=== PATIENT | female | born 1935 | race Caucasian/White ===

== ENCOUNTER → 2017-02-07 | Outpatient (CLI) | payer MEDICARE ==
[2017-02-07 12:35] LABS: MEAN CORPUSCULAR HEMOGLOBIN 31.9 pg (27.0-33.0); MEAN CORPUSCULAR VOLUME 99.8 fl (80.0-96.0); RED CELL DISTRIBUTION WIDTH 12.3 % (11.5-14.5); WHITE BLOOD COUNT 3.9 K/mm3 (4.0-10.0)
[2017-02-07 13:00] LABS: ALBUMIN 3.3 GM/DL (3.2-5.2); ALBUMIN/GLOBULIN RATIO 0.97 (1.00-1.93); BILIRUBIN,TOTAL 0.3 MG/DL (0.2-1.0); CALCIUM LEVEL 8.8 MG/DL (8.8-10.2); CREATININE FOR GFR 1.04 MG/DL (0.55-1.02); GLOMERULAR FILTRATION RATE 54.3 (>32); POTASSIUM SERUM 3.8 MEQ/L (3.5-5.1); TOTAL PROTEIN 6.7 GM/DL (6.4-8.2)
== END ==
LOC: M WUC 09:17
PROVIDERS: ATTEND Nurse Practitioner Adult Health
DX: Z00.00 Encounter for general adult medical examination without abnormal findings (principal); E78.00 Pure hypercholesterolemia, unspecified; K21.9 Gastro-esophageal reflux disease without esophagitis; M85.80 Other specified disorders of bone density and structure, unspecified site

== ENCOUNTER 2017-03-28 14:12 | Observation (INO) | payer MEDICARE ==
[2017-03-28] MEDS ORDERED: COLA100C3 PO (14:25)
[2017-03-28] MEDS ORDERED: VITASPR PO (14:25)
[2017-03-28] MEDS ORDERED: HYDR12.55 PO (14:25)
[2017-03-28] MEDS ORDERED: NEXI40CA PO (14:25)
[2017-03-28] MEDS ORDERED: ATEN50TA2 PO (14:25)
[2017-03-28] MEDS ORDERED: SIMV20TA2 PO (14:25)
[2017-03-28] MEDS ORDERED: FLUTISP (14:25)
[2017-03-28] MEDS ORDERED: HYOS125TA PO (14:27)
[2017-03-28] MEDS ORDERED: XANA0.5T PO (14:27)
[2017-03-28] MEDS ORDERED: CLON0.5T PO (14:27)
[2017-03-28 15:29] LABS: BASO % 0.3 % (0.0-1.0); EOS % 0.1 % (0.0-3.0); LARGE UNSTAINED CELL % 0.4 % (0.0-4.0); LYMPH # 0.5 K/mm3 (1.5-4.5); LYMPH % 7.4 % (24.0-44.0); MEAN CORPUSCULAR HEMOGLOBIN 32.9 pg (27.0-33.0); MEAN CORPUSCULAR VOLUME 96.6 fl (80.0-96.0); MONO # 0.2 K/mm3 (0.0-0.8); MONO % 3.2 % (0.0-5.0); NEUTROPHILS # 6.2 K/mm3 (1.8-7.7); NEUTROPHILS % 88.5 % (36.0-66.0); PLATELET COUNT, AUTOMATED 236 k/mm3 (150-450); RED CELL DISTRIBUTION WIDTH 11.9 % (11.5-14.5)
[2017-03-28] MEDS ORDERED: MORPHINE 4 MG/ML 1ML SYRINGE IV ONE ×2 (15:45→20:15)
[2017-03-28] MEDS ORDERED: ONDANSETRON 4MG/2ML VIAL (J2405) IV ONE (15:45)
[2017-03-28 15:57] LABS: ALBUMIN 3.7 GM/DL (3.2-5.2); BILIRUBIN,DIRECT 0.2 MG/DL (0.0-0.2); BILIRUBIN,TOTAL 0.5 MG/DL (0.2-1.0); CALCIUM LEVEL 9.1 MG/DL (8.8-10.2); CREATININE FOR GFR 1.44 MG/DL (0.55-1.02); GLOMERULAR FILTRATION RATE 37.3 (>32); POTASSIUM SERUM 3.1 MEQ/L (3.5-5.1); TOTAL PROTEIN 7.4 GM/DL (6.4-8.2)
[2017-03-28] MEDS: NS 1,000 ML IV SCH (16:06)
[2017-03-28] MEDS ORDERED: POTASSIUM CHLORIDE 10 MEQ SR TABLET PO ONE (17:10)
[2017-03-28] MEDS ORDERED: GASTROGRAFIN SOLUTION 30ML (Q9963) PO ONE ×2 (17:15→17:45)
[2017-03-28] MEDS ORDERED: ISOVUE-370 76% 100ML VIAL (Q9967) As Ordered ONE (18:39)
[2017-03-28] MEDS ORDERED: PROMETHAZINE INJ 25 MG/ML VIAL (J2550) IV ONE (20:15)
--- NOTE | 2017-03-28 20:40 | REPUSA ---
CLINICAL HISTORY: Upper abdominal pain, elevated lipase. TECHNIQUE: Multiple axial CT images were obtained through the abdomen and pelvis after administratio n of oral and intravenous contrast material. COMMENTS: The liver is of uniform attenuation without mass or defect. The spleen is normal. Status post cholecystectomy. There is intra and extrahepatic biliary ductal dilatation present. The common bile duct measures up to 12 mm. The pancreas is of normal contour and attenuation characteris tics. There is no evidence of adrenal mass. Both kidneys demonstrate prompt and equal nephrograms. The kidneys are normal in size, shape and con figuration. There is no evidence of renal or ureteral mass. No renal or ureteral calculi are identi fied. There is no hydroureter or hydronephrosis. There is no evidence for appendicitis. There is evidence of severe circumferential wall thickening i nvolving duodenum compatible with duodenitis. Consider followup with upper endoscopy. No evidence fo r small or large bowel obstruction. There is no evidence of abdominal ascites or lymphadenopathy. Th ere is diffuse diverticulosis involving descending and sigmoid colon without evidence of diverticulit is. There is no evidence of intrinsic or extrinsic bladder mass. There is no pelvic ascites or lymphaden opathy. Images of the lung bases show no evidence of pleural or parenchymal mass. There are no pleural effus ions. There are areas of lung scarring in the right middle lobe, lingula and lung bases. There are increased interstitial lung markings noted suggesting early pulmonary fibrosis. Very large hiatal hernia is present. Stomach is markedly distended. Status post complete hysterectomy. The bony structures are free of lytic or blastic lesions. Multilevel degenerative changes are seen i nvolving the thoracolumbar spine. Status post bilateral total hip replacement. Hardware is intact. Scattered calcifications are seen involving the aorta and major branches compatible with atherosclero sis. IMPRESSION: 1. Status post cholecystectomy. There is intra and extrahepatic biliary ductal dilatation present. 2. There is evidence of severe circumferential wall thickening involving duodenum compatible with duo denitis. Stomach is markedly distended. Consider followup with upper endoscopy. 3. There is diffuse diverticulosis involving descending and sigmoid colon without evidence of diverti culitis. 4. There are increased interstitial lung markings noted suggesting early pulmonary fibrosis. 5. Very large hiatal hernia is present. Thank you for your kind referral of this patient. We appreciate the opportunity to participate in thi s patient's care.
[2017-03-28] MEDS ORDERED: PANTOPRAZOLE 40MG INJ (PROTONIX) (C9113) IV SCH (21:00)
[2017-03-28] MEDS ORDERED: KCL 40MEQ in NS 1000ML 1,000 ML IV SCH (21:27)
[2017-03-28] MEDS ORDERED: GI COCKTAIL 50ML BTL(HYOSCYAMINE/MAALOX/LIDOCAINE VISCOUS)(1:3:1) PO PRN (21:30)
[2017-03-28] MEDS ORDERED: ONDANSETRON 4MG/2ML VIAL (J2405) IV PRN (21:30)
[2017-03-28] MEDS ORDERED: VITA100066 PO (22:03)
[2017-03-28] MEDS ORDERED: ASPI325T28 PO (22:15)
[2017-03-29] MEDS: SUCRALFATE SUSP 1GM/10ML UD PO SCH ×3 (00:41→12:00)
[2017-03-29] MEDS: NS 1,000 ML IV SCH (01:39)
[2017-03-29 01:59] VITALS: BP 175/83
--- NOTE | 2017-03-29 03:21 | HPE ---
DATE OF ADMISSION: 03/28/2017 PRIMARY CARE PROVIDER: WENDY Ramos. CHIEF COMPLAINT: Crampy abdominal pain for 1 day. PAST MEDICAL HISTORY: 1. Hypertension. 2. Hyperlipidemia. 3. Diverticulosis of the colon. 4. Allergic rhinitis. 5. Anxiety. 6. Intermittent recurrent abdominal pains. 7. Hiatal hernia. HISTORY OF PRESENT ILLNESS: This is an 82-year-old female who was in her usual state of health until last night when she developed epigastric and right upper quadrant pain. She does have intermittent episodes of this kind of pain, which would last about 3-4 hours and resolve by itself. However, this time the pain did not resolve and the pain was associated with nausea, but no vomiting and so the patient came to the emergency room for evaluation. Patient says that she has this kind of pain every couple of months since her gallbladder has been removed and describes this as phantom gallbladder pain. In the emergency room, patient had lab work done, which showed mild acute kidney injury (MILANA) with a creatinine of 1.44, elevated amylase at 133, elevated lipase of 654, so the patient underwent CT scan of the abdomen to rule out pancreatitis, which did not reveal any pancreatitis, but did show duodenitis. There was severe circumferential wall thickening involving the duodenum. The stomach was markedly distended. Also, there was decreased diverticulosis involving the descending and sigmoid colon. Very large hiatal hernia present. There were increased interstitial lung markings suggestive of early pulmonary fibrosis. Patient was in severe pain in the emergency room, which required two doses of 4 mg morphine, as well as Phenergan to control. After patient got this, patient became somnolent and was noted to hypoventilate and dropped her oxygen saturations to mid 80s, so was put on 2 liters nasal cannula with good response with oxygenation to 99%. The hospitalist service was consulted for admission and the patient was admitted for duodenitis and possible pancreatitis. PAST SURGICAL HISTORY: 1. Bilateral cataract surgery. 2. Right total hip replacement. 3. Cholecystectomy in 2009. 4. Total hysterectomy with bilateral salpingo-oophorectomy in 1992. 5. Removal of actinic keratosis on scalp and buttocks in 2012. 6. Salivary gland surgery in 2008. 7. Left total hip replacement in 2012. ALLERGIES: LISINOPRIL, ADITYA INHIBITORS cause cough and allergy. Also allergic to DICLOXACILLIN, PROBENECID and TAPE. HOME MEDICATIONS: - aspirin 325 mg by mouth daily - atenolol 50 mg by mouth daily - cholecalciferol 4000 units by mouth daily - clonazepam 0.4 mg by mouth three times a day as needed for spasms - Colace 200 mg by mouth daily - Nexium 40 mg by mouth daily - fluticasone propionate nasal spray one spray both nostrils daily - hydrochlorothiazide 12.5 mg by mouth daily - hyoscyamine sulfate 0.125 mg as needed for spasms - simvastatin 20 mg at bedtime REVIEW OF SYSTEMS: On my interview in the emergency room, patient was very somnolent after getting 8 mg of morphine and Phenergan. Could barely open her eyes. When I asked her whether she was in pain, she said no pain; however, immediately fell asleep, no further history could be elicited from the patient. Rest of the history and review of systems was taken from emergency room (ER) physician and electronic medical records. There was no fever or chills. There was no diarrhea or vomiting. No chest pain or shortness of breath. No cough or phlegm. PHYSICAL EXAMINATION: VITAL SIGNS: Temperature 98, pulse 66, respiratory rate 16, blood pressure 158/90, pulse oximetry 99% with 2 liters nasal cannula. GENERAL: Patient very sleepy after getting morphine and Phenergan. HEENT: Normocephalic, atraumatic. Anicteric eyes. CHEST: Some bilateral basal crackles, otherwise clear to auscultation. CARDIOVASCULAR: S1, S2 regular. No rub, murmur or gallop. ABDOMEN: Obese, soft, bowel sounds present. EXTREMITIES: No edema. LABORATORY DATA: WBC 7, hemoglobin 13.7, platelets 236. Sodium 140, potassium 3.1, chloride 99, bicarbonate 34, BUN 29, creatinine 1.44, glucose 143, lactase 1.9. Liver function tests are normal. Amylase 133, lipase 654. CT scan of the abdomen and pelvis as noted above. ASSESSMENT AND PLAN: This is an 82-year-old female admitted for abdominal pain thought to be related to duodenitis versus pancreatitis. PLAN: 1. Duodenitis versus pancreatitis. Will keep the patient on liquid diet. Will give gastrointestinal (GI) cocktail, pantoprazole and Carafate. CT scan did not show any pancreatitis. It showed duodenitis. There was dilatation of the stomach and thickening of the duodenal wall. Radiologist suggested followup esophagogastroduodenoscopy (EGD), so will consult GI if required either inpatient or outpatient. 2. Hypertension. Will hold hydrochlorothiazide; however, will continue atenolol. 3. Hiatal hernia and gastroesophageal reflux disease. Will continue with pantoprazole. 4. Hyperlipidemia. Will continue with simvastatin. 5. Pain control. Will give morphine as needed. 6. Deep venous thrombosis (DVT) prophylaxis has been ordered. 7. Hypokalemia. Will replace.
[2017-03-29 06:00] VITALS: BP 170/70
[2017-03-29 07:40] LABS: BASO % 0.3 % (0.0-1.0); EOS # 0.1 K/mm3 (0.0-0.50); EOS % 0.8 % (0.0-3.0); LARGE UNSTAINED CELL # 0.1 K/mm3 (0.0-0.4); LARGE UNSTAINED CELL % 0.6 % (0.0-4.0); LYMPH # 0.6 K/mm3 (1.5-4.5); LYMPH % 7.1 % (24.0-44.0); MEAN CORPUSCULAR HEMOGLOBIN 31.8 pg (27.0-33.0); MEAN CORPUSCULAR HGB CONC 32.8 g/dl (32.0-36.5); MEAN CORPUSCULAR VOLUME 96.9 fl (80.0-96.0); MONO # 0.4 K/mm3 (0.0-0.8); MONO % 4.9 % (0.0-5.0); NEUTROPHILS # 7.2 K/mm3 (1.8-7.7); NEUTROPHILS % 86.3 % (36.0-66.0); PLATELET COUNT, AUTOMATED 211 k/mm3 (150-450); RED CELL DISTRIBUTION WIDTH 12.4 % (11.5-14.5); WHITE BLOOD COUNT 8.3 K/mm3 (4.0-10.0)
[2017-03-29 08:08] LABS: ALBUMIN 3.3 GM/DL (3.2-5.2); ALBUMIN/GLOBULIN RATIO 0.94 (1.00-1.93); BILIRUBIN,TOTAL 0.5 MG/DL (0.2-1.0); CALCIUM LEVEL 8.6 MG/DL (8.8-10.2); CREATININE FOR GFR 1.38 MG/DL (0.55-1.02); GLOMERULAR FILTRATION RATE 39.2 (>32); MAGNESIUM LEVEL 2.1 MG/DL (1.8-2.4); POTASSIUM SERUM 4.3 MEQ/L (3.5-5.1); TOTAL PROTEIN 6.8 GM/DL (6.4-8.2)
[2017-03-29 08:09] VITALS: BP 170/70
[2017-03-29] MEDS ORDERED: ATENOLOL 50 MG TAB PO SCH (09:00)
--- NOTE | 2017-03-29 11:01 | REP ---
Portable chest, single AP view, patient sitting: Comparison is 01/25/2012. There is a large hiatal hernia. There is minor discoid atelectasis inferiorly in the right lung. The lung hoffman otherwise clear. Cardiac size cannot be assessed as the right cardiac margin is obscured by the hiatal hernia. The fletcher, mediastinum, and bony thorax are unremarkable. Impression: Minor discoid atelectasis in the right lung. Large hiatal hernia. Signed by William Sousa MD 03/29/2017 10:52 A
[2017-03-29] MEDS ORDERED: SUCR1TA PO (12:27)
[2017-03-29] MEDS ORDERED: ZOFR20TA PO (12:27)
[2017-03-29 14:00] VITALS: BP 163/76
--- NOTE | 2017-03-29 15:04 | DSES ---
DATE OF ADMISSION: 03/28/2017 DATE OF DISCHARGE: 03/29/2017 ATTENDING PHYSICIAN: Dr. Antonio Eastman PRIMARY CARE PROVIDER: Lela Jeffrey RN, ANP REFERRING PHYSICIAN: None. CONSULTING PHYSICIAN: None. CONDITION ON DISCHARGE: Stable. FINAL DIAGNOSIS: Gastroenteritis. PROCEDURES: None. HISTORY OF PRESENT ILLNESS: Patient is an 82-year-old female with a past medical history of hypertension, dyslipidemia, diverticulosis of the colon, allergic rhinitis, anxiety, intermittent recurrent abdominal pains, and hiatal hernia, who presented to the emergency room after she developed epigastric pain and right upper quadrant pain. Patient has noted that she has had these episodes before in the past, all of which would usually last for 3 or 4 hours and then resolve spontaneously. However, this time when the patient began to experience problems, she had associated nausea and vomiting. No actual vomiting but retching had occurred. Patient is status post cholecystectomy, and she describes the pain as phantom gallbladder pain. Patient was admitted and received a CT scan of her abdomen. CT scan of her abdomen was noted to have duodenitis, severe circumferential wall thickening involving the duodenum, stomach was markedly distended, and there was diverticulosis without diverticulitis noted at the descending sigmoid. HOSPITAL COURSE: 1. Status post abdominal pain, possibly secondary to duodenitis, possibly secondary to gastroenteritis. Patient had complained of abdominal pain in the epigastric region that has occurred before in the past with several episodes but usually had resolved. This time it was associated with nausea and retching; however, upon receiving sucralfate and Zofran throughout her hospital course, she has improved. Patient had received IV fluid hydration. Currently, upon evaluation this morning, patient denies any abdominal pain. Physical exam reveals no abdominal discomfort. Imaging has been noted. Patient has been scheduled to followup with her primary care provider and have a referral for gastroenterology for an outpatient esophagogastroduodenoscopy (EGD). 2. Hypertension. Hydrochlorothiazide has been held. Atenolol has been continued. Upon discharge, patient will continue with hydrochlorothiazide. 3. Hiatal hernia and gastroesophageal reflux disease (GERD). Will continue with Protonix. 4. Dyslipidemia. Will continue with simvastatin. 5. Pain control. Will continue with morphine as needed; however, has not required much morphine throughout his hospital course. 6. Deep venous thrombosis (DVT) prophylaxis. 7. Hypokalemia. Has been supplemented. DISCHARGE MEDICATION: Patient is being discharged home with the following medication list: - aspirin 325 mg by mouth daily - atenolol 50 mg by mouth daily - cholecalciferol 4000 units by mouth daily - clonazepam 0.5 mg by mouth three times a day as needed spasms - docusate sodium 200 mg by mouth daily - esomeprazole 40 mg by mouth daily - fluticasone one spray in each nostril daily - hydrochlorothiazide 12.5 mg by mouth daily - hyoscyamine 0.125 mg by mouth as needed spasms - simvastatin 20 mg by mouth nightly New medications prescribed include: - Zofran 4 mg by mouth every 6 hours as needed nausea for 15 tablets total - sucralfate 1 gram by mouth before food, nightly for 1-month duration DISCHARGE INSTRUCTIONS: Patient has been advised to followup with her primary care provider within the next 7 days. She has been advised to followup with gastroenterology within the next 1 month. She has been advised to remain compliant with treatment plan and medications and return to the emergency room if she experiences any problems. TIME SPENT ON DISCHARGE: 35 minutes. Edited: sandra 03/30/2017 0818
[2017-03-29] MEDS ORDERED: SIMVASTATIN 20 MG TAB PO SCH (21:00)
== END 2017-03-29 15:10 | disposition home or self-care (01) ==
LOC: M ED 15:49 → INTOOBSV 21:27 → M ED INP 21:27 → M MS5PR 03-29 01:55
PROVIDERS: ADMIT Internal Medicine Nephrology; ATTEND Internal Medicine
DX: K52.9 Noninfective gastroenteritis and colitis, unspecified (principal); I10 Essential (primary) hypertension; E78.5 Hyperlipidemia, unspecified; K57.30 Diverticulosis of large intestine without perforation or abscess without bleeding; J30.9 Allergic rhinitis, unspecified; F41.9 Anxiety disorder, unspecified; K44.9 Diaphragmatic hernia without obstruction or gangrene; E87.6 Hypokalemia; Z79.82 Long term (current) use of aspirin; Z79.899 Other long term (current) drug therapy; Z88.8 Allergy status to other drugs, medicaments and biological substances
CPT/HCPCS: 36415; 71010; 74177; 80048; 80053; 80076; 81001; 82150; 83605; 83690; 83735; 85025; 87086; 93041; 96374; 96375; 96376; 99285; C9113; J2405; Q9963; Q9967

== ENCOUNTER → 2017-05-27 | Outpatient (CLI) | payer MEDICARE ==
[~2017-05-27] MED LIST: ASPI325T28 PO; ATEN50TA2 PO; CLON0.5T PO; COLA100C5 PO; FLUTISP; HYDR12.55 PO; HYOS125TA PO; NEXI40CA PO; SIMV20TA2 PO; SUCR1TA PO; VITA100066 PO; VITASPR PO; XANA0.5T PO; ZOFR20TA PO
[2017-05-27 12:18] LABS: BASO % 0.8 % (0.0-1.0); EOS # 0.2 K/mm3 (0.0-0.50); LARGE UNSTAINED CELL # 0.1 K/mm3 (0.0-0.4); LARGE UNSTAINED CELL % 1.9 % (0.0-4.0); LYMPH # 1.2 K/mm3 (1.5-4.5); LYMPH % 24.6 % (24.0-44.0); MEAN CORPUSCULAR HEMOGLOBIN 31.9 pg (27.0-33.0); MEAN CORPUSCULAR VOLUME 96.6 fl (80.0-96.0); MONO # 0.3 K/mm3 (0.0-0.8); MONO % 7.1 % (0.0-5.0); NEUTROPHILS # 2.9 K/mm3 (1.8-7.7); NEUTROPHILS % 61.6 % (36.0-66.0); PLATELET COUNT, AUTOMATED 218 k/mm3 (150-450); RED CELL DISTRIBUTION WIDTH 12.6 % (11.5-14.5); WHITE BLOOD COUNT 4.7 K/mm3 (4.0-10.0)
[2017-05-27 12:41] LABS: ALBUMIN 3.5 GM/DL (3.2-5.2); ALBUMIN/GLOBULIN RATIO 0.97 (1.00-1.93); BILIRUBIN,TOTAL 0.4 MG/DL (0.2-1.0); CALCIUM LEVEL 8.8 MG/DL (8.8-10.2); CREATININE FOR GFR 1.32 MG/DL (0.55-1.02); GLOMERULAR FILTRATION RATE 41.2 (>32); POTASSIUM SERUM 4.3 MEQ/L (3.5-5.1); TOTAL PROTEIN 7.1 GM/DL (6.4-8.2)
== END ==
LOC: M LAB 11:40
PROVIDERS: ATTEND Internal Medicine Gastroenterology
DX: R10.13 Epigastric pain (principal)

== ENCOUNTER → 2017-05-29 | Outpatient (CLI) | payer MEDICARE ==
--- NOTE | 2017-05-29 09:15 | REP ---
MRCP: MRCP exam is accomplished utilizing multiple heavily T2 weighted sequences in the axial and coronal planes. MIP reconstruction images are performed. Comparison is made with a prior study of 12/18/2013 at [facility]. The patient has had a prior cholecystectomy. There is mild dilatation of the intrahepatic bile ducts. There is dilatation of the common hepatic and common bile ducts, with a maximum diameter of 11 mm. The common bile duct tapers gradually as it courses distally with no change in configuration when compared to the prior study. There is no MR evidence of choledocholithiasis. The pancreatic duct is not dilated. There is no free fluid in the visualized abdomen. There is a small cyst in the lower pole of the right kidney. IMPRESSION: Stable biliary dilatation status post cholecystectomy when compared to the prior study of . Signed by William Melara MD 05/29/2017 04:39 P
== END ==
LOC: M RAD 07:15
PROVIDERS: ATTEND Internal Medicine Gastroenterology
DX: R93.3 Abnormal findings on diagnostic imaging of other parts of digestive tract (principal)

== ENCOUNTER 2017-06-21 07:35 | Outpatient (CLI) | payer MEDICARE ==
[~2017-06-21] VITALS: Ht 165.1 cm; Wt 68.9 kg
[2017-06-21] MEDS ORDERED: NS 1,000 ML IV ONE (08:15)
[2017-06-21] MEDS ORDERED: LIDOCAINE 2% INJ 100 MG/5 ML SDV (FOR ANES.) As Ordered ONE (08:40)
[2017-06-21] MEDS ORDERED: PROPOFOL 200 MG/20 ML VIAL As Ordered ONE (08:40)
--- NOTE | 2017-06-21 08:42 | ROOR ---
Patient Name: Yamile Culp Procedure Date: 06/21/2017 8:21 AM Date of : 1935 Age: 82 Room: [facility] Gender: Female Note Status: Finalized Procedure: Upper GI endoscopy Indications: Epigastric abdominal pain, Abnormal CT of the GI tract Providers: Harvey LEMONS MD Referring MD: Lela Jeffrey NP Requesting Provider: Medicines: Monitored Anesthesia Care Complications: No immediate complications. Procedure: Pre-Anesthesia Assessment: - The heart rate, respiratory rate, oxygen saturations, blood pressure, adequacy of pulmonary ventilation, and response to care were monitored throughout the procedure. The Endoscope was introduced through the mouth, and advanced to the second part of duodenum. The upper GI endoscopy was accomplished without difficulty. The patient tolerated the procedure well. Findings: A small hiatal hernia was present. The esophagus was normal. The stomach was normal. (somewhat elongated and large volume stomach, sometimes seen in gastroparesis) The examined duodenum was normal. Impression: - Small hiatal hernia. - Normal esophagus. - Normal stomach. - Normal examined duodenum. - No specimens collected. Recommendation: - Eat smaller, more frequent meals throughout the day. - Low fat diet. - Liquid/soft foods are tolerated better than solid foods. - Low fiber/well cooked vegetables are tolerated better than high fiber/fibrous foods/raw vegetables. - Avoid medications that inhibit gastric/intestinal motility such as narcotic medications. (- -For recurrent symptoms, consider gastric emptying testing.) Harvey Lemons MD Harvey LEMONS MD 06/21/2017 8:42:37 AM This report has been signed electronically. Number of Addenda: 0 Note Initiated On: 06/21/2017 8:21 AM Estimated Blood Loss: Estimated blood loss: none.
[2017-06-21 08:52] VITALS: BP 167/76
== END 2017-06-21 09:00 | disposition home or self-care (01) ==
LOC: M OPP 07:35
PROVIDERS: ATTEND Internal Medicine Gastroenterology
DX: R93.3 Abnormal findings on diagnostic imaging of other parts of digestive tract (principal); R10.13 Epigastric pain; K44.9 Diaphragmatic hernia without obstruction or gangrene; I10 Essential (primary) hypertension; E78.5 Hyperlipidemia, unspecified; R12 Heartburn; Z85.828 Personal history of other malignant neoplasm of skin; J32.9 Chronic sinusitis, unspecified; Z96.641 Presence of right artificial hip joint; Z96.642 Presence of left artificial hip joint; Z88.8 Allergy status to other drugs, medicaments and biological substances; Z91.048 Other nonmedicinal substance allergy status; Z79.899 Other long term (current) drug therapy; Z80.0 Family history of malignant neoplasm of digestive organs

== ENCOUNTER → 2017-07-03 | Outpatient (CLI) | payer MEDICARE ==
--- NOTE | 2017-07-03 09:57 | REP ---
NUCLEAR GASTRIC EMPTYING SCAN: Following the oral administration of 1.09 millicuries of technetium 99m sulfur colloid in two scrambled eggs in 6 ounces of water, multiple images of the upper abdomen are performed in the anterior and posterior projections for 90 minutes. Gastric activity is measured. At the end of 90 minutes, 11% of the adjusted activity has emptied from the stomach. This yields a T-1/2 of 400 minutes. A normal T-1/2 is 90 minutes. IMPRESSION: Markedly delayed gastric emptying. Signed by William Melara MD 07/03/2017 05:02 P
== END ==
LOC: M RAD 07:43
PROVIDERS: ATTEND Internal Medicine Gastroenterology
DX: K31.84 Gastroparesis (principal)
CPT/HCPCS: 78264; A9541

== ENCOUNTER → 2018-01-21 | Outpatient (REF) | payer MEDICARE ==
[2018-01-21 19:08] LABS: TOTAL 25(OH) VITAMIN D 61.4 NG/ML (30.0-100.0)
[2018-01-21 19:15] LABS: ALBUMIN 3.5 GM/DL (3.2-5.2); ALBUMIN/GLOBULIN RATIO 0.95 (1.00-1.93); ALKALINE PHOSPHATASE 80 U/L (45-117); ALT/SGPT 17 U/L (12-78); ANION GAP 6 MEQ/L (8-16); AST/SGOT 18 U/L (7-37); BILIRUBIN,TOTAL 0.3 MG/DL (0.2-1.0); BLOOD UREA NITROGEN 22 MG/DL (7-18); CALCIUM LEVEL 8.9 MG/DL (8.8-10.2); CARBON DIOXIDE LEVEL 31 MEQ/L (21-32); CHLORIDE LEVEL 107 MEQ/L (98-107); CHOLESTEROL LEVEL 173 MG/DL (<200); CHOLESTEROL RISK RATIO 2.836 (<5); CREATININE FOR GFR 1.21 MG/DL (0.55-1.30); GLOMERULAR FILTRATION RATE 45.5 (>32); GLUCOSE, FASTING 72 MG/DL (70-100); HDL CHOLESTEROL 61 MG/DL (>40); NON-HDL-C 112 MG/DL; POTASSIUM SERUM 4.2 MEQ/L (3.5-5.1); SODIUM LEVEL 144 MEQ/L (136-145); TOTAL PROTEIN 7.2 GM/DL (6.4-8.2); TRIGLYCERIDES LEVEL 170 MG/DL (<150)
== END ==
LOC: M SFHCPLAZ 14:51
DX: Z00.00 Encounter for general adult medical examination without abnormal findings (principal); E55.9 Vitamin D deficiency, unspecified; E78.00 Pure hypercholesterolemia, unspecified; Z79.899 Other long term (current) drug therapy
CPT/HCPCS: 80053

== ENCOUNTER 2018-03-20 17:08 | Inpatient (IN) | payer MEDICARE ==
[2018-03-20] MEDS: NS 1,000 ML IV ×2 (17:15→17:32)
[2018-03-20 17:38] LABS: BASO % 0.4 % (0.0-1.0); EOS % 0.2 % (0.0-3.0); HEMATOCRIT 43.5 % (36.0-47.0); HEMOGLOBIN 14.9 g/dl (12.0-15.5); IMMATURE GRANULOCYTE % 0.3 % (0-3.0); LYMPH # 1.1 10^3/uL (1.5-4.5); LYMPH % 10.8 % (24.0-44.0); MEAN CORPUSCULAR HEMOGLOBIN 31.6 pg (27.0-33.0); MEAN CORPUSCULAR HGB CONC 34.3 g/dl (32.0-36.5); MEAN CORPUSCULAR VOLUME 92.4 fl (80.0-96.0); MONO # 0.7 10^3/uL (0.0-0.8); MONO % 6.8 % (0.0-5.0); NEUTROPHILS # 7.9 10^3/uL (1.8-7.7); NEUTROPHILS % 81.5 % (36.0-66.0); PLATELET COUNT, AUTOMATED 257 10^3/uL (150-450); RED BLOOD COUNT 4.71 10^6/uL (4.00-5.40); RED CELL DISTRIBUTION WIDTH 11.9 % (11.5-14.5); WHITE BLOOD COUNT 9.7 10^3/uL (4.0-10.0)
[2018-03-20] MEDS: MORPHINE 2 MG/ML 1ML SYRINGE (J2270) IV ×2 (17:46→22:46)
[2018-03-20] MEDS: ONDANSETRON 4MG/2ML VIAL (J2405) IV ×2 (17:46→22:53)
[2018-03-20 18:10] LABS: ALBUMIN 3.7 GM/DL (3.2-5.2); ALBUMIN/GLOBULIN RATIO 0.86 (1.00-1.93); ALKALINE PHOSPHATASE 85 U/L (45-117); ALT/SGPT 18 U/L (12-78); ANION GAP 15 MEQ/L (8-16); AST/SGOT 21 U/L (7-37); BILIRUBIN,DIRECT 0.2 MG/DL (0.0-0.2); BILIRUBIN,TOTAL 0.6 MG/DL (0.2-1.0); BLOOD UREA NITROGEN 43 MG/DL (7-18); CALCIUM LEVEL 9.6 MG/DL (8.8-10.2); CARBON DIOXIDE LEVEL 26 MEQ/L (21-32); CHLORIDE LEVEL 97 MEQ/L (98-107); CREATININE FOR GFR 2.01 MG/DL (0.55-1.30); GLOMERULAR FILTRATION RATE 25.3 (>32); GLUCOSE, FASTING 84 MG/DL (70-100); LIPASE 232 U/L (73-393); POTASSIUM SERUM 3.7 MEQ/L (3.5-5.1); SODIUM LEVEL 138 MEQ/L (136-145)
[2018-03-20 18:14] LABS: LACTIC ACID SEPSIS PROTOCOL 3.1 MMOL/L (0.4-2.0)
[2018-03-20] MEDS ORDERED: clonazePAM 0.5 MG TAB PO (20:45)
[2018-03-20] MEDS ORDERED: ACETAMINOPHEN TAB 650MG DOSE (2X325MG) PO (20:45)
[2018-03-20] MEDS: FLUTICASONE PROP 0.05% NASAL SPRAY 16 GM (FLONASE) (21:00)
[2018-03-20] MEDS: SUCRALFATE 1 GM TAB PO (23:34)
[2018-03-20] MEDS: SIMVASTATIN 20 MG TAB PO (23:35)
[2018-03-20] MEDS: ASPIRIN 81 MG ENTERIC TAB PO (23:35)
[2018-03-20] MEDS: DOCUSATE SODIUM 100 MG CAP PO (23:35)
[2018-03-20] MEDS: D5W/0.9% SODIUM CHLORIDE 1,000 ML IV (23:35)
[2018-03-20] MEDS: PANTOPRAZOLE 40MG INJ (PROTONIX) (C9113) IV (23:35)
[2018-03-21] MEDS: NS 1,000 ML IV ×2 (03:15→03:32)
[2018-03-21] MEDS: D5W/0.9% SODIUM CHLORIDE 1,000 ML IV ×2 (05:04→11:41)
[2018-03-21] MEDS: ATENOLOL 50 MG TAB PO (07:55)
[2018-03-21] MEDS: MORPHINE 2 MG/ML 1ML SYRINGE (J2270) IV (07:55)
[2018-03-21] MEDS: ONDANSETRON 4MG/2ML VIAL (J2405) IV ×2 (07:55→17:45)
[2018-03-21] MEDS: SUCRALFATE 1 GM TAB PO ×3 (07:55→16:50)
[2018-03-21] MEDS: ENOXAPARIN 30 MG/0.3 ML SYR (J1650) SC (07:56)
[2018-03-21 08:35] LABS: BASO % 0.3 % (0.0-1.0); EOS # 0.1 10^3/uL (0.0-0.50); EOS % 1.1 % (0.0-3.0); HEMATOCRIT 38.5 % (36.0-47.0); IMMATURE GRANULOCYTE % 0.4 % (0-3.0); LYMPH # 0.8 10^3/uL (1.5-4.5); LYMPH % 10.7 % (24.0-44.0); MEAN CORPUSCULAR HEMOGLOBIN 31.7 pg (27.0-33.0); MEAN CORPUSCULAR HGB CONC 33.8 g/dl (32.0-36.5); MEAN CORPUSCULAR VOLUME 93.9 fl (80.0-96.0); MONO # 0.8 10^3/uL (0.0-0.8); MONO % 10.7 % (0.0-5.0); NEUTROPHILS # 5.6 10^3/uL (1.8-7.7); NEUTROPHILS % 76.8 % (36.0-66.0); PLATELET COUNT, AUTOMATED 217 10^3/uL (150-450); RED CELL DISTRIBUTION WIDTH 12.2 % (11.5-14.5); WHITE BLOOD COUNT 7.3 10^3/uL (4.0-10.0)
[2018-03-21 09:00] LABS: ANION GAP 10 MEQ/L (8-16); BLOOD UREA NITROGEN 44 MG/DL (7-18); CALCIUM LEVEL 8.3 MG/DL (8.8-10.2); CARBON DIOXIDE LEVEL 28 MEQ/L (21-32); CHLORIDE LEVEL 104 MEQ/L (98-107); CREATININE FOR GFR 1.86 MG/DL (0.55-1.30); GLOMERULAR FILTRATION RATE 27.7 (>32); GLUCOSE, FASTING 154 MG/DL (70-100); POTASSIUM SERUM 3.4 MEQ/L (3.5-5.1); SODIUM LEVEL 142 MEQ/L (136-145)
[2018-03-21] MEDS ORDERED: hydroCHLOROthiazide 12.5 MG CAPSULE PO (09:00)
[2018-03-21] MEDS ORDERED: VITAMIN D 1,000 INTERNATIONAL UNITS TABLET PO (12:00)
[2018-03-21] MEDS: SUCRALFATE SUSP 1GM/10ML UD PO (22:10)
[2018-03-21] MEDS: PANTOPRAZOLE 40MG INJ (PROTONIX) (C9113) IV (22:11)
[2018-03-21] MEDS: ASPIRIN 81 MG ENTERIC TAB PO (22:11)
[2018-03-21] MEDS: FLUTICASONE PROP 0.05% NASAL SPRAY 16 GM (FLONASE) (22:17)
[2018-03-21] MEDS: MORPHINE 4 MG/ML 1ML VIAL/SYRINGE (J2270) IV (22:18)
[2018-03-22] MEDS: D5W/0.9% SODIUM CHLORIDE 1,000 ML IV (00:53)
[2018-03-22] MEDS: SUCRALFATE SUSP 1GM/10ML UD PO ×2 (09:12→12:07)
[2018-03-22] MEDS: ENOXAPARIN 30 MG/0.3 ML SYR (J1650) SC (09:12)
[2018-03-22] MEDS: ATENOLOL 50 MG TAB PO (09:12)
[2018-03-22] MEDS: BISACODYL 10 MG SUPP PR (09:13)
[2018-03-22 09:15] LABS: ANION GAP 6 MEQ/L (8-16); BLOOD UREA NITROGEN 29 MG/DL (7-18); CARBON DIOXIDE LEVEL 30 MEQ/L (21-32); CHLORIDE LEVEL 110 MEQ/L (98-107); CREATININE FOR GFR 1.37 MG/DL (0.55-1.30); GLOMERULAR FILTRATION RATE 39.4 (>32); GLUCOSE, FASTING 101 MG/DL (70-100); POTASSIUM SERUM 3.7 MEQ/L (3.5-5.1); SODIUM LEVEL 146 MEQ/L (136-145)
== END 2018-03-22 14:44 | disposition home or self-care (01) | DRG 684 ==
LOC: M MSPAV 03-21 14:01 → M ED 17:08 → M ED INP 22:07
DX: N17.9 Acute kidney failure, unspecified (principal); K44.9 Diaphragmatic hernia without obstruction or gangrene; K59.00 Constipation, unspecified; E86.0 Dehydration; F41.9 Anxiety disorder, unspecified; E78.5 Hyperlipidemia, unspecified; K21.9 Gastro-esophageal reflux disease without esophagitis; K57.30 Diverticulosis of large intestine without perforation or abscess without bleeding; J30.9 Allergic rhinitis, unspecified; I10 Essential (primary) hypertension; Z79.899 Other long term (current) drug therapy; K31.84 Gastroparesis; Z88.1 Allergy status to other antibiotic agents; Z91.040 Latex allergy status

== ENCOUNTER → 2018-03-27 | Outpatient (REF) | payer MEDICARE ==
[2018-03-27 14:37] LABS: ANION GAP 10 MEQ/L (8-16); BLOOD UREA NITROGEN 20 MG/DL (7-18); CALCIUM LEVEL 8.9 MG/DL (8.8-10.2); CARBON DIOXIDE LEVEL 30 MEQ/L (21-32); CHLORIDE LEVEL 102 MEQ/L (98-107); GLOMERULAR FILTRATION RATE 50.7 (>32); GLUCOSE, FASTING 69 MG/DL (70-100); POTASSIUM SERUM 3.4 MEQ/L (3.5-5.1); SODIUM LEVEL 142 MEQ/L (136-145)
== END ==
LOC: M SFHCPLAZ 11:58
DX: N18.3 Chronic kidney disease, stage 3 (moderate) (principal)
CPT/HCPCS: 80048

== ENCOUNTER → 2018-05-14 | Outpatient (REF) | payer MEDICARE | LOC: M WUC 12:45 | DX: N39.0 Urinary tract infection, site not specified (principal) | CPT/HCPCS: 87186 ==

== ENCOUNTER → 2018-08-05 | Outpatient (CLI) | payer MEDICARE ==
[2018-08-05 14:15] LABS: ALBUMIN 3.6 GM/DL (3.2-5.2); ALBUMIN/GLOBULIN RATIO 0.95 (1.00-1.93); ALKALINE PHOSPHATASE 86 U/L (45-117); ALT/SGPT 17 U/L (12-78); ANION GAP 7 MEQ/L (8-16); AST/SGOT 17 U/L (7-37); BILIRUBIN,TOTAL 0.4 MG/DL (0.2-1.0); BLOOD UREA NITROGEN 25 MG/DL (7-18); CALCIUM LEVEL 9.3 MG/DL (8.8-10.2); CARBON DIOXIDE LEVEL 31 MEQ/L (21-32); CHLORIDE LEVEL 99 MEQ/L (98-107); CHOLESTEROL LEVEL 182 MG/DL (<200); CHOLESTEROL RISK RATIO 2.563 (<5); CREATININE FOR GFR 1.27 MG/DL (0.55-1.30); GLUCOSE, FASTING 82 MG/DL (70-100); HDL CHOLESTEROL 71 MG/DL (>40); LDL CHOLESTEROL 83 MG/DL (<100); NON-HDL-C 111 MG/DL; POTASSIUM SERUM 4.3 MEQ/L (3.5-5.1); SODIUM LEVEL 137 MEQ/L (136-145); TOTAL PROTEIN 7.4 GM/DL (6.4-8.2); TRIGLYCERIDES LEVEL 142 MG/DL (<150)
[2018-08-05 14:19] LABS: TOTAL 25(OH) VITAMIN D 67.6 NG/ML (30.0-100.0)
== END ==
LOC: M WUC 11:23
DX: E78.2 Mixed hyperlipidemia (principal)
CPT/HCPCS: 80053

== ENCOUNTER 2018-12-27 19:01 | Emergency (ER) | payer MEDICARE ==
[~2018-12-27] VITALS: Ht 165.1 cm; Wt 65.9 kg
[~2018-12-27 19:01] MED LIST changes: +ASPI-222 PO; -ASPI325T28 PO; +ASPI81TA85 PO; +BISA10SU PR; +CARA1TAB6 PO; -CLON0.5T PO; +CLON0.5T8 PO; +METO5TAB2 PO; +SENN-50 PO; +TYLE500T78 PO; -ZOFR20TA PO; +ZOFR4TAB16 PO
[2018-12-27] MEDS ORDERED: SUCRALFATE SUSP 1GM/10ML UD PO ONE (19:45)
[2018-12-27] MEDS ORDERED: GI COCKTAIL 50ML BTL(HYOSCYAMINE/MAALOX/LIDOCAINE VISCOUS)(1:3:1) PO ONE (19:45)
[2018-12-27] MEDS ORDERED: PANTOPRAZOLE 40MG INJ (PROTONIX) (C9113) IV ONE (19:45)
--- NOTE | 2018-12-27 19:50 | ECGEPIP ---
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
[2018-12-27] MEDS ORDERED: AMIODARONE 150MG/3ML INJ (J0282) IVP STA (20:05)
[2018-12-27] MEDS ORDERED: MAGNESIUM *L&D* 4 GM/100 ML BAG (40MG/ML) (J3475) IV ONE (20:15)
[2018-12-27] MEDS ORDERED: METOCLOPRAMIDE INJ 10MG/2ML VIAL (J2765) IV ONE (20:15)
[2018-12-27 20:23] LABS: BASO % 0.3 % (0.0-1.0); EOS # 0.1 10^3/uL (0.0-0.50); EOS % 0.7 % (0.0-3.0); HEMATOCRIT 37.3 % (36.0-47.0); HEMOGLOBIN 12.6 g/dl (12.0-15.5); LYMPH # 0.9 10^3/uL (1.5-4.5); MEAN CORPUSCULAR HEMOGLOBIN 31.6 pg (27.0-33.0); MEAN CORPUSCULAR HGB CONC 33.8 g/dl (32.0-36.5); MEAN CORPUSCULAR VOLUME 93.5 fl (80.0-96.0); MONO # 0.3 10^3/uL (0.0-0.8); MONO % 4.7 % (0.0-5.0); NEUTROPHILS # 5.9 10^3/uL (1.8-7.7); NEUTROPHILS % 81.2 % (36.0-66.0); PLATELET COUNT, AUTOMATED 217 10^3/uL (150-450); RED BLOOD COUNT 3.99 10^6/uL (4.00-5.40); WHITE BLOOD COUNT 7.2 10^3/uL (4.0-10.0)
[2018-12-27] MEDS ORDERED: MORPHINE 2 MG/ML 1ML SYRINGE (J2270) IV ONE ×2 (20:45→22:00)
[2018-12-27 21:01] LABS: ALBUMIN 3.6 GM/DL (3.2-5.2); ALT/SGPT 16 U/L (12-78); BILIRUBIN,DIRECT < 0.1 MG/DL (0.0-0.2); BILIRUBIN,TOTAL 0.4 MG/DL (0.2-1.0); BLOOD UREA NITROGEN 20 MG/DL (7-18); CALCIUM LEVEL 9.2 MG/DL (8.8-10.2); CARBON DIOXIDE LEVEL 32 MEQ/L (21-32); CHLORIDE LEVEL 98 MEQ/L (98-107); CPK CREATINE PHOSPHOKINASE 172 U/L (26-192); CREATININE FOR GFR 1.19 MG/DL (0.55-1.30); GLOMERULAR FILTRATION RATE 46.3 (>32); GLUCOSE, FASTING 100 MG/DL (70-100); LIPASE 311 U/L (73-393); MB/CK RELATIVE INDEX 1.45 (< OR =4); POTASSIUM SERUM 2.9 MEQ/L (3.5-5.1); SODIUM LEVEL 140 MEQ/L (136-145); TROPONIN I < 0.02 NG/ML (< 0.10)
[2018-12-27] MEDS ORDERED: NS 1,000 ML IV ONE (21:15)
[2018-12-27] MEDS ORDERED: POTASSIUM CHLORIDE 10 MEQ SR TABLET PO ONE (21:15)
[2018-12-27] MEDS ORDERED: ISOVUE-370 76% 125ML VIAL (Q9967 PER ML) As Ordered ONE (21:24)
--- NOTE | 2018-12-27 22:08 | REPVR ---
EXAM: CT Chest With Contrast EXAM DATE/TIME: 12/27/2018 9:37 PM CLINICAL HISTORY: 83 years old, female; Pain; Chest pain TECHNIQUE: Imaging protocol: Axial computed tomography images of the chest with intravenous contrast. Coronal and sagittal reformatted images were created and reviewed. Radiation optimization: All CT scans at this facility use at least one of these dose optimization techniques: automated exposure control; mA and/or kV adjustment per patient size (includes targeted exams where dose is matched to clinical indication); or iterative reconstruction. Contrast material: ISOVUE 370 Contrast volume: 100 ml Contrast route: IV COMPARISON: CR Abdomen,Flat Upright,PA CHEST 03/20/2018 5:39 PM FINDINGS: Lungs: COPD. Pleural space: Minimal bilateral apical pleural parenchymal scarring. Lungs otherwise clear. Heart: Normal. No cardiomegaly. No pericardial effusion. Mediastinum: Diffusely dilated thoracic esophagus. Findings likely related to compression from the hiatal hernia. Large hiatal hernia. Aorta: The aorta demonstrates mild atherosclerotic calcification. Lymph nodes: Unremarkable. No enlarged lymph nodes. Bones/joints: The spine demonstrates mild degenerative changes. Soft tissues: Unremarkable. Liver: Dilated intrahepatic biliary radicals. Dilated common bile duct. Gallbladder and bile ducts: Cholecystectomy. IMPRESSION: 1. Diffusely dilated thoracic esophagus. Findings likely related to compression from the hiatal hernia. 2. Large hiatal hernia. 3. COPD. Electronically signed by: Igor Carnes On 12/27/2018 22:08:25 PM
--- NOTE | 2018-12-27 22:14 | REPVR ---
EXAM: CT Abdomen and Pelvis With Contrast EXAM DATE/TIME: 12/27/2018 9:37 PM CLINICAL HISTORY: 83 years old, female; Pain; Abdominal pain TECHNIQUE: Imaging protocol: Axial computed tomography images of the abdomen and pelvis with intravenous contrast. Coronal and sagittal reformatted images were created and reviewed. Radiation optimization: All CT scans at this facility use at least one of these dose optimization techniques: automated exposure control; mA and/or kV adjustment per patient size (includes targeted exams where dose is matched to clinical indication); or iterative reconstruction. Contrast material: ISOVUE 370 Contrast volume: 100 ml Contrast route: IV COMPARISON: CT ABD PELVIS W/O CONTRAST 03/20/2018 6:50 PM FINDINGS: Lower thorax: No acute findings. ABDOMEN: Liver: Normal. No mass. Gallbladder and bile ducts: There has been a cholecystectomy. Intrahepatic and extra hepatic biliary dilatation greater than typically demonstrated post cholecystectomy. Correlation with biliary chemistry suggested. Pancreas: There is diffuse pancreatic atrophy. Spleen: Normal. No splenomegaly. Adrenals: Normal. No mass. Kidneys and ureters: Small right renal cyst measures 7 millimeters. Kidneys otherwise unremarkable. Stomach and bowel: Dilated proximal stomach secondary to constriction of the gastric body in the hernia diaphragmatic defect. Herniated portion of the gastric body and antrum dilated secondary to constriction of the distal stomach in the hernia defect as well. Diverticulosis coli. No diverticulitis. Appendix: No evidence of appendicitis. PELVIS: Bladder: Unremarkable as visualized. Reproductive: There has been a hysterectomy. ABDOMEN and PELVIS: Intraperitoneal space: Normal. No free air. No significant fluid collection. Bones/joints: Status post bilateral total hip replacements. The spine demonstrates mild degenerative changes. Soft tissues: Unremarkable. Vasculature: The aorta demonstrates moderate atherosclerotic calcification. Lymph nodes: Normal. No enlarged lymph nodes. IMPRESSION: 1. There has been a cholecystectomy. 2. Intrahepatic and extra hepatic biliary dilatation greater than typically demonstrated post cholecystectomy. Correlation with biliary chemistry suggested. 3. Dilated proximal stomach secondary to constriction of the gastric body in the hernia diaphragmatic defect. Herniated portion of the gastric body and antrum dilated secondary to constriction of the distal stomach in the hernia defect as well. 4. There is diffuse pancreatic atrophy. 5. Diverticulosis coli. No diverticulitis. 6. There has been a hysterectomy. COMMENT: Consistent with the [employer]'s Incidental Findings Committee Report (J Am Roshan Radiol 2010): Unless the patient's specific circumstances suggest otherwise, any liver lesion 0.5 cm or less, any cystic kidney lesion less than 1.0 cm, and/or any adrenal lesion 1.0 cm or less not otherwise characterized in this report as possessing suspicious or indeterminate imaging features is/are highly likely to be benign and do not require follow-up imaging or biopsy. Electronically signed by: Igor Carnes On 12/27/2018 22:13:47 PM
[2018-12-27] MEDS ORDERED: LIDOCAINE 2% JELLY 6 ML SYRINGE TOP ONE (22:15)
[2018-12-27 23:06] VITALS: BP 160/83
--- NOTE | 2018-12-29 11:22 | ED PDOC ---
Post-Departure Follow-Up [facility] faxed formal report of ct abd/p for fu Aiden Kebede MD Dec 29, 2018 11:22
--- NOTE | 2018-12-29 11:23 | ED PDOC ---
Post-Departure Follow-Up additionally ct chest faxed to [facility] for fu Aiden Kebede MD Dec 29, 2018 11:23
== END 2018-12-27 23:09 | disposition home or self-care (01) ==
LOC: EDBD 19:01 → M ED 19:01
DX: H44.9 Unspecified disorder of globe (principal); K31.84 Gastroparesis; K21.9 Gastro-esophageal reflux disease without esophagitis; I25.10 Atherosclerotic heart disease of native coronary artery without angina pectoris; E78.5 Hyperlipidemia, unspecified; Z79.899 Other long term (current) drug therapy; Z79.82 Long term (current) use of aspirin; Z88.0 Allergy status to penicillin; Z88.8 Allergy status to other drugs, medicaments and biological substances; Z91.040 Latex allergy status; Z91.048 Other nonmedicinal substance allergy status
CPT/HCPCS: 36415; 71260; 74177; 80048; 80076; 82550; 82553; 83690; 84484; 85025; 93005; 96361; 96374; 96375; 96376; 99284; C9113; J2270; J2765; Q9967

== ENCOUNTER → 2019-01-26 | Outpatient (CLI) | payer MEDICARE ==
[~2019-01-26] MED LIST changes: +E-Z-GAS II EFFERVESCENT PACKET (SODIUM BICARB./CITRIC ACID/SIMETHICONE) As Ordered ONE; +E-Z-HD 98% w/w 340GM SUSP BTL As Ordered ONE; +E-Z-PAQUE 96% w/w SUSP 176GM BTL As Ordered ONE; +HYDR-643 PO; +STOO100C PO
--- NOTE | 2019-01-26 15:29 | REP ---
Upper GI air contrast The procedure was performed under the direct supervision of Dr. Lugo. The images were reviewed with Dr. Lugo The stereo compiler film shows no organomegaly or pathological masses. The intestinal gas pattern is non-specific. There are surgical clips in the right upper quadrant. The patient is status post bilateral hip arthroplasty. Liquid barium and gas producing crystals were given in the erect position as well as liquid barium in the prone oblique position in order to perform a double contrast upper GI examination. The oral and pharyngeal stages of deglutition are unremarkable. There are esophageal transport there are tertiary waves demonstrated. There is no esophagitis, stricture, mucosal ring or hiatal hernia. Gastroesophageal reflux is not demonstrated on this examination. The stomach agraawl are normally outlined . The rugal folds are smooth and regular. There is no gastritis neoplasm or ulcer disease. The duodenal agrawal are normally outlined . The mucosal folds are smooth and regular. There is no duodenitis pancreatitis peptic ulcer disease or neoplasm. The visualized portion of the proximal small bowel appears normal in course and caliber. Impression: There are tertiary waves demonstrated. Otherwise, unremarkable double contrast upper GI examination. The hiatal hernia that was seen on a previous CT scan from 12/27/2018 is not seen on today's examination. One minute of fluoro time was utilized for this procedure. Reviewed by MJ Harrison 01/26/2019 02:57 P Electronically Signed by Ayush Lugo MD 01/26/2019 03:21 P
== END ==
LOC: M RAD 08:13
PROVIDERS: ATTEND Internal Medicine Gastroenterology
DX: Z87.19 Personal history of other diseases of the digestive system (principal)

== ENCOUNTER 2019-02-09 12:24 | Day surgery (SDC) | payer MEDICARE ==
[~2019-02-09] VITALS: Ht 165.1 cm; Wt 62.1 kg
[~2019-02-09 12:24] MED LIST changes: -E-Z-GAS II EFFERVESCENT PACKET (SODIUM BICARB./CITRIC ACID/SIMETHICONE) As Ordered ONE; -E-Z-HD 98% w/w 340GM SUSP BTL As Ordered ONE; -E-Z-PAQUE 96% w/w SUSP 176GM BTL As Ordered ONE; +NS 1,000 ML IV ONE
[2019-02-09] MEDS ORDERED: LIDOCAINE 2% INJ 100 MG/5 ML SDV (FOR ANES.) As Ordered ONE (13:02)
[2019-02-09] MEDS ORDERED: PROPOFOL 200 MG/20 ML VIAL As Ordered ONE (13:02)
[2019-02-09] MEDS ORDERED: fentaNYL 100 MCG/2 ML INJECTION (J3010) As Ordered ONE (13:40)
--- NOTE | 2019-02-09 14:19 | ROOR ---
Patient Name: Yamile Culp Procedure Date: 02/09/2019 2:00 PM Date of : 1935 Age: 84 Room: [facility] Gender: Female Note Status: Finalized Procedure: Upper GI endoscopy Indications: Follow-up of hiatal hernia, History of gastric volvulus-decompressed via NGT. This is a re assessment/possible preop assessment. Providers: Harvey LEMONS MD Referring MD: Lela TORRES NP Requesting Provider: Medicines: Monitored Anesthesia Care Complications: No immediate complications. Procedure: Pre-Anesthesia Assessment: - The heart rate, respiratory rate, oxygen saturations, blood pressure, adequacy of pulmonary ventilation, and response to care were monitored throughout the procedure. The Endoscope was introduced through the mouth, and advanced to the second part of duodenum. The upper GI endoscopy was accomplished without difficulty. The patient tolerated the procedure well. Findings: Small Hiatal Hernia. The esophagus was normal. The stomach was normal. The examined duodenum was normal. Impression: - Normal esophagus. - Small Hiatal Hernia. - Normal stomach. - Normal examined duodenum. - No specimens collected. Recommendation: - Refer to a surgeon as previously scheduled. Harvey Lemons MD Harvey LEMONS MD 02/09/2019 2:19:18 PM Electronically signed by Harvey LEMONS MD Number of Addenda: 0 Note Initiated On: 02/09/2019 2:00 PM Estimated Blood Loss: Estimated blood loss: none.
[2019-02-09 14:44] VITALS: BP 194/94
== END 2019-02-09 14:47 | disposition home or self-care (01) ==
LOC: M OPP 12:24
PROVIDERS: ATTEND Internal Medicine Gastroenterology
DX: K44.9 Diaphragmatic hernia without obstruction or gangrene (principal)
CPT/HCPCS: 43235; J3010

== ENCOUNTER → 2019-09-15 | Outpatient (CLI) | payer MEDICARE ==
[~2019-09-15] MED LIST changes: -ASPI-222 PO; +ASPI-527 PO; +CLON0.5T2 PO; -CLON0.5T8 PO; +MM S100C PO; -NS 1,000 ML IV ONE; -SIMV20TA2 PO; +SIMV20TA22 PO; -STOO100C PO
[2019-09-15 17:12] LABS: ALBUMIN 3.6 GM/DL (3.2-5.2); BILIRUBIN,TOTAL 0.6 MG/DL (0.2-1.0); CALCIUM LEVEL 9.3 MG/DL (8.8-10.2); CHOLESTEROL RISK RATIO 2.619 (<5); CREATININE FOR GFR 1.34 MG/DL (0.55-1.30); GLOMERULAR FILTRATION RATE 40.3 (>32); POTASSIUM SERUM 3.6 MEQ/L (3.5-5.1); TOTAL PROTEIN 7.1 GM/DL (6.4-8.2)
[2019-09-15 17:17] LABS: TOTAL 25(OH) VITAMIN D 79.2 NG/ML (30.0-100.0)
== END ==
LOC: M WUC 11:05
PROVIDERS: ATTEND Nurse Practitioner Adult Health
DX: E55.9 Vitamin D deficiency, unspecified (principal); E78.2 Mixed hyperlipidemia; N18.3 Chronic kidney disease, stage 3 (moderate)

== ENCOUNTER → 2020-04-07 | Outpatient (REF) | payer MEDICARE ==
[~2020-04-07] MED LIST changes: -ASPI81TA85 PO; +ASPI81TA86 PO
[2020-04-07 18:00] LABS: ALBUMIN 3.6 GM/DL (3.2-5.2); BILIRUBIN,TOTAL 0.3 MG/DL (0.2-1.0); CALCIUM LEVEL 9.1 MG/DL (8.8-10.2); CHOLESTEROL RISK RATIO 2.746 (<5); CREATININE FOR GFR 1.26 MG/DL (0.55-1.30); GLOMERULAR FILTRATION RATE 43.2 (>32); THYROID STIMULATING HORMONE 2.4 uIU/ML (0.358-3.740)
== END ==
LOC: M SFHCPLAZ 14:12
PROVIDERS: ATTEND Nurse Practitioner Adult Health
DX: N18.3 Chronic kidney disease, stage 3 (moderate) (principal); E78.2 Mixed hyperlipidemia; E55.9 Vitamin D deficiency, unspecified
CPT/HCPCS: 36415; 80053; 80061; 82306; 84443; G0463

== ENCOUNTER → 2020-06-06 | Outpatient (CLI) | payer MEDICARE ==
--- NOTE | 2020-07-04 09:35 | REPPI ---
BILATERAL TEMPOROMANDIBULAR JOINT SERIES CLINICAL: Right-sided jaw click. TECHNIQUE: AP and bilateral open and closed mouth of the temporomandibular joints. FINDINGS: The mandible is intact, and there is no evidence for acute fracture or obvious osseous abnormality. Open and closed mouth views of the bilateral temporomandibular joints demonstrate anterior motion. IMPRESSION: Relatively normal motion to the bilateral temporomandibular joints. Disc displacement cannot be excluded. MTDD
== END ==
LOC: M PLAIMG 13:49 → M PLALAB 13:49
PROVIDERS: ATTEND Nurse Practitioner Adult Health
DX: M26.601 Right temporomandibular joint disorder, unspecified (principal)

== ENCOUNTER → 2021-05-04 | Outpatient (CLI) | payer MEDICARE ==
[2021-05-04 11:04] LABS: HEMATOCRIT 38.3 % (36.0-47.0); HEMOGLOBIN 12.3 g/dl (12.0-15.5); MEAN CORPUSCULAR HEMOGLOBIN 31.9 pg (27.0-33.0); MEAN CORPUSCULAR HGB CONC 32.1 g/dl (32.0-36.5); MEAN CORPUSCULAR VOLUME 99.5 fl (80.0-96.0); PLATELET COUNT, AUTOMATED 225 10^3/uL (150-450); RED BLOOD COUNT 3.85 10^6/uL (4.00-5.40); WHITE BLOOD COUNT 4.3 10^3/uL (4.0-10.0)
[2021-05-04 11:33] LABS: ALBUMIN 3.4 GM/DL (3.2-5.2); BILIRUBIN,TOTAL 0.3 MG/DL (0.2-1.0); CALCIUM LEVEL 9.2 MG/DL (8.8-10.2); CHOLESTEROL RISK RATIO 2.836 (<5); CREATININE FOR GFR 1.33 MG/DL (0.55-1.30); GLOMERULAR FILTRATION RATE 40.5 (>32); MAGNESIUM LEVEL 1.9 MG/DL (1.8-2.4); POTASSIUM SERUM 4.3 MEQ/L (3.5-5.1); TOTAL PROTEIN 6.5 GM/DL (6.4-8.2)
[2021-05-04 11:36] LABS: TOTAL 25(OH) VITAMIN D 59.9 NG/ML (30.0-100.0)
[2021-05-05 14:09] LABS: IgG P18 AB Absent (.); IgG P23 AB Absent (.); IgG P28 AB Absent (.); IgG P30 AB Absent (.); IgG P39 AB Absent (.); IgG P41 AB Absent (.); IgG P45 AB Absent (.); IgG P66 AB Absent (.); IgG P93 AB Absent (.); IgM P23 AB Absent (.); IgM P39 AB Absent (.); IgM P41 AB Absent (.); LYME IgG WB INTERPRETATION Negative (.); LYME IgM WB INTERPRETATION Negative (.)
== END ==
LOC: M WUC 09:15
PROVIDERS: ATTEND Nurse Practitioner Adult Health
DX: E55.9 Vitamin D deficiency, unspecified (principal); Z00.00 Encounter for general adult medical examination without abnormal findings; S40.261D Insect bite (nonvenomous) of right shoulder, subsequent encounter; R25.2 Cramp and spasm; E78.2 Mixed hyperlipidemia; N18.30 Chronic kidney disease, stage 3 unspecified

== ENCOUNTER 2021-12-30 10:42 | Emergency (ER) | payer MEDICARE ==
[~2021-12-30] VITALS: Ht 165.1 cm; Wt 70.0 kg
[2021-12-30 11:43] LABS: BASO % 0.3 % (0.0-1.0); EOS # 0.1 10^3/uL (0.0-0.5); EOS % 0.5 % (0.0-3.0); HEMOGLOBIN 12.3 g/dl (12.0-15.5); LYMPH # 0.6 10^3/uL (1.5-5.0); LYMPH % 5.5 % (24.0-44.0); MEAN CORPUSCULAR HEMOGLOBIN 31.3 pg (27.0-33.0); MEAN CORPUSCULAR HGB CONC 33.2 g/dl (32.0-36.5); MEAN CORPUSCULAR VOLUME 94.1 fl (80.0-96.0); MONO # 0.9 10^3/uL (0.0-0.8); MONO % 7.6 % (2.0-8.0); NEUTROPHILS # 9.5 10^3/uL (1.5-8.5); NEUTROPHILS % 85.6 % (36.0-66.0); PLATELET COUNT, AUTOMATED 231 10^3/uL (150-450); RED BLOOD COUNT 3.93 10^6/uL (4.00-5.40); WHITE BLOOD COUNT 11.2 10^3/uL (4.0-10.0)
[2021-12-30] MEDS ORDERED: GI COCKTAIL 50ML BTL(HYOSCYAMINE/MAALOX/LIDOCAINE VISCOUS)(1:3:1) PO ONE (11:45)
[2021-12-30 12:05] LABS: CALCIUM LEVEL 9.4 MG/DL (8.8-10.2); CREATININE FOR GFR 1.39 MG/DL (0.55-1.30); GLOMERULAR FILTRATION RATE 38.5 (>32); POTASSIUM SERUM 3.9 MEQ/L (3.5-5.1)
[2021-12-30 12:11] LABS: CK-MB VALUE MASS 2.2 NG/ML (<3.6); MB/CK RELATIVE INDEX 1.2 (< OR =4)
[2021-12-30 13:31] LABS: CK-MB VALUE MASS 1.9 NG/ML (<3.6); MB/CK RELATIVE INDEX 1.12 (< OR =4)
[2021-12-30] MEDS ORDERED: SUCR1TA PO (13:38)
[2021-12-30 14:00] VITALS: BP 144/68
== END 2021-12-30 14:30 | disposition home or self-care (01) ==
LOC: M ED 10:42
DX: R07.9 Chest pain, unspecified (principal); R94.31 Abnormal electrocardiogram [ECG] [EKG]; I10 Essential (primary) hypertension; E78.5 Hyperlipidemia, unspecified; K57.90 Diverticulosis of intestine, part unspecified, without perforation or abscess without bleeding; F41.8 Other specified anxiety disorders; Z79.899 Other long term (current) drug therapy; Z88.0 Allergy status to penicillin; Z91.048 Other nonmedicinal substance allergy status; Z91.040 Latex allergy status

== ENCOUNTER → 2022-06-14 | Outpatient (CLI) | payer MEDICARE ==
[2022-06-14 17:28] LABS: ALBUMIN 3.5 GM/DL (3.2-5.2); BILIRUBIN,TOTAL 0.5 MG/DL (0.2-1.0); CALCIUM LEVEL 9.2 MG/DL (8.8-10.2); CHOLESTEROL RISK RATIO 2.833 (<5); CREATININE FOR GFR 1.32 MG/DL (0.55-1.30); GLOMERULAR FILTRATION RATE 40.7 (>32); POTASSIUM SERUM 4.1 MEQ/L (3.5-5.1); TOTAL PROTEIN 6.9 GM/DL (6.4-8.2)
[2022-06-14 17:55] LABS: TOTAL 25(OH) VITAMIN D 71.7 NG/ML (30.0-100.0)
== END ==
LOC: M WUC 11:25
PROVIDERS: ATTEND Nurse Practitioner Adult Health
DX: E55.9 Vitamin D deficiency, unspecified (principal); E78.2 Mixed hyperlipidemia; N18.30 Chronic kidney disease, stage 3 unspecified

== ENCOUNTER → 2022-11-22 | Outpatient (CLI) | payer MEDICARE ==
[2022-11-22 13:04] LABS: CALCIUM LEVEL 9.9 MG/DL (8.3-10.6); CREATININE FOR GFR 1.45 MG/DL (0.55-1.30); GLOMERULAR FILTRATION RATE 36.5 (>32); POTASSIUM SERUM 4.2 MMOL/L (3.5-5.1); TOTAL 25(OH) VITAMIN D 79.7 NG/ML (20.0-100.0)
[2022-11-22 13:05] LABS: ALBUMIN 3.1 G/DL (3.2-5.2); BILIRUBIN,TOTAL 0.3 MG/DL (0.3-1.2); CHOLESTEROL RISK RATIO 2.96 (<5); LDL CHOLESTEROL 68.2 MG/DL (<100); TOTAL PROTEIN 6.5 G/DL (5.7-8.2)
== END ==
LOC: M WUC 08:52
PROVIDERS: ATTEND Nurse Practitioner Adult Health
DX: I10 Essential (primary) hypertension (principal); E55.9 Vitamin D deficiency, unspecified; E53.8 Deficiency of other specified B group vitamins; E78.2 Mixed hyperlipidemia; Z79.899 Other long term (current) drug therapy

== ENCOUNTER → 2023-04-02 | Outpatient (CLI) | payer MEDICARE ==
[~2023-04-02] MED LIST changes: +FLUT50SP17; -FLUTISP
[2023-04-02 14:03] LABS: BASO # 0.1 10^3/uL (0.0-0.2); BASO % 0.7 % (0.0-1.0); EOS # 0.1 10^3/uL (0.0-0.5); EOS % 1.8 % (0.0-3.0); HEMATOCRIT 38.2 % (36.0-47.0); HEMOGLOBIN 12.7 g/dl (12.0-15.5); LYMPH # 0.7 10^3/uL (1.5-5.0); MEAN CORPUSCULAR HEMOGLOBIN 30.8 pg (27.0-33.0); MEAN CORPUSCULAR HGB CONC 33.2 g/dl (32.0-36.5); MEAN CORPUSCULAR VOLUME 92.5 fl (80.0-96.0); MONO # 0.7 10^3/uL (0.0-0.8); MONO % 9.2 % (2.0-8.0); NEUTROPHILS # 5.7 10^3/uL (1.5-8.5); NEUTROPHILS % 77.6 % (36.0-66.0); PLATELET COUNT, AUTOMATED 363 10^3/uL (150-450); RED BLOOD COUNT 4.13 10^6/uL (4.00-5.40); WHITE BLOOD COUNT 7.4 10^3/uL (4.0-10.0)
[2023-04-02 14:04] LABS: FREE T4 1.15 NG/DL (0.89-1.76); THYROID STIMULATING HORMONE 1.812 uIU/ML (0.55-4.78)
[2023-04-02 14:05] LABS: ALBUMIN 3.2 G/DL (3.2-5.2); BILIRUBIN,TOTAL 0.4 MG/DL (0.3-1.2); CALCIUM LEVEL 8.9 MG/DL (8.3-10.6); CREATININE FOR GFR 1.2 MG/DL (0.55-1.30); FERRITIN 161.7 NG/ML (7.3-270.7); GLOMERULAR FILTRATION RATE 45.3 (>32); POTASSIUM SERUM 3.9 MMOL/L (3.5-5.1); TOTAL PROTEIN 6.6 G/DL (5.7-8.2)
[2023-04-02 14:45] LABS: HEMOGLOBIN A1c 5.4 % (4.0-6.0)
[2023-04-02 19:49] LABS: ERYTHROCYTE SEDIMENTATION RATE 68 mm/hr (0-30)
== END ==
LOC: M PLALAB 10:10
PROVIDERS: ATTEND Physician Assistant
DX: R53.83 Other fatigue (principal); R51.9 Headache, unspecified; Z79.899 Other long term (current) drug therapy

== ENCOUNTER → 2023-05-15 | Outpatient (CLI) | payer MEDICARE ==
[2023-05-15 12:46] LABS: ALBUMIN 3.1 G/DL (3.2-5.2); ALKALINE PHOSPHATASE 98 U/L (46-116); ALT/SGPT < 9 U/L (7.0-40); AST/SGOT 12 U/L (<34); BILIRUBIN,TOTAL 0.6 MG/DL (0.3-1.2); BLOOD UREA NITROGEN 13 MG/DL (9-23); CARBON DIOXIDE LEVEL 29 MMOL/L (20-31); CHLORIDE LEVEL 102 MMOL/L (98-107); CHOLESTEROL LEVEL 117 MG/DL (<200); CHOLESTEROL RISK RATIO 2.15 (<5); CREATININE FOR GFR 0.99 MG/DL (0.55-1.30); GLOMERULAR FILTRATION RATE 56.6 (>32); GLUCOSE, FASTING 94 MG/DL (74-106); HDL CHOLESTEROL 54.4 MG/DL (>40); LDL CHOLESTEROL 41.8 MG/DL (<100); NON-HDL-C 62.6 MG/DL; POTASSIUM SERUM 4.1 MMOL/L (3.5-5.1); SODIUM LEVEL 138 MMOL/L (136-145); TOTAL 25(OH) VITAMIN D 96.5 NG/ML (20.0-100.0); TOTAL PROTEIN 6.4 G/DL (5.7-8.2); TRIGLYCERIDES LEVEL 104 MG/DL (<150)
== END ==
LOC: M WUC 08:56
PROVIDERS: ATTEND Nurse Practitioner Adult Health
DX: I10 Essential (primary) hypertension (principal); E78.2 Mixed hyperlipidemia; E55.9 Vitamin D deficiency, unspecified

== ENCOUNTER → 2023-05-15 | Outpatient (REF) | payer MEDICARE | LOC: CANPREREF → M SFHCPLAZ 08:53 | PROVIDERS: ATTEND Nurse Practitioner Adult Health | DX: Z53.9 Procedure and treatment not carried out, unspecified reason (principal) ==

== ENCOUNTER → 2023-09-28 | Outpatient (REF) | payer MEDICARE ==
[~2023-09-28] MED LIST changes: -FLUT50SP17; +FLUTISP
== END ==
LOC: M LAB REF 17:54
PROVIDERS: ATTEND Registered Nurse
DX: N39.0 Urinary tract infection, site not specified (principal)

== ENCOUNTER → 2024-02-03 | Outpatient (REF) | payer MEDICARE ==
[2024-02-03 18:32] LABS: ALBUMIN 3.4 G/DL (3.2-5.2); BILIRUBIN,TOTAL 0.3 MG/DL (0.3-1.2); CREATININE FOR GFR 1.19 MG/DL (0.55-1.30); GLOMERULAR FILTRATION RATE 45.7 (>32); POTASSIUM SERUM 4.1 MMOL/L (3.5-5.1); TOTAL PROTEIN 6.5 G/DL (5.7-8.2)
== END ==
LOC: M LABWUC 17:11 → M SFHCPLAZ 17:11
PROVIDERS: ATTEND Nurse Practitioner Adult Health
DX: I10 Essential (primary) hypertension (principal)

== ENCOUNTER → 2024-05-11 | Outpatient (CLI) | payer MEDICARE ==
[2024-05-11 18:27] LABS: HEMATOCRIT 42.6 % (36.0-47.0); HEMOGLOBIN 13.8 g/dl (12.0-15.5); MEAN CORPUSCULAR HEMOGLOBIN 31.9 pg (27.0-33.0); MEAN CORPUSCULAR HGB CONC 32.4 g/dl (32.0-36.5); MEAN CORPUSCULAR VOLUME 98.6 fl (80.0-96.0); PLATELET COUNT, AUTOMATED 246 10^3/uL (150-450); RED BLOOD COUNT 4.32 10^6/uL (4.00-5.40); WHITE BLOOD COUNT 5.1 10^3/uL (4.0-10.0)
[2024-05-11 18:49] LABS: HEMOGLOBIN A1c 5.4 % (4.0-6.0)
[2024-05-11 18:57] LABS: ALBUMIN 3.6 G/DL (3.2-5.2); BILIRUBIN,TOTAL 0.5 MG/DL (0.3-1.2); CALCIUM LEVEL 9.4 MG/DL (8.3-10.6); CREATININE FOR GFR 1.26 MG/DL (0.55-1.30); GLOMERULAR FILTRATION RATE 42.8 (>32); MAGNESIUM LEVEL 1.8 MG/DL (1.8-2.4)
[2024-05-11 18:58] LABS: THYROID STIMULATING HORMONE 3.04 uIU/ML (0.55-4.78); TOTAL 25(OH) VITAMIN D 77.3 NG/ML (20.0-100.0)
[2024-05-11 18:59] LABS: FREE T4 0.78 NG/DL (0.89-1.76)
== END ==
LOC: M WUC 11:12
PROVIDERS: ATTEND Nurse Practitioner Adult Health
DX: I10 Essential (primary) hypertension (principal); R53.83 Other fatigue; R51.9 Headache, unspecified; R52 Pain, unspecified; R25.2 Cramp and spasm; E55.9 Vitamin D deficiency, unspecified; Z79.899 Other long term (current) drug therapy

== ENCOUNTER → 2025-08-30 | Outpatient (CLI) | payer MEDICARE ==
[2025-08-30 12:40] LABS: PLATELET COUNT, AUTOMATED 268 10^3/uL (150-450)
[2025-08-30 13:14] LABS: VITAMIN B12 LEVEL 614.0 PG/ML (211-911)
[2025-08-30 13:15] LABS: ALT/SGPT 21.0 U/L (7.0-40); AST/SGOT 28.0 U/L (<34); CALCIUM LEVEL 9.1 MG/DL (8.3-10.6); CARBON DIOXIDE LEVEL 29.0 MMOL/L (20-31); CHLORIDE LEVEL 106.0 MMOL/L (98-107); CHOLESTEROL LEVEL 172.0 MG/DL (<200); CHOLESTEROL RISK RATIO 2.96 (<5); CREATININE FOR GFR 1.28 MG/DL (0.55-1.30); GLOMERULAR FILTRATION RATE 40.3 (>32); LDL CHOLESTEROL 82.5 MG/DL (<100); MAGNESIUM LEVEL 1.7 MG/DL (1.8-2.4); NON-HDL-C 113.9 MG/DL; POTASSIUM SERUM 3.9 MMOL/L (3.5-5.1); SODIUM LEVEL 144.0 MMOL/L (136-145); TRIGLYCERIDES LEVEL 157.0 MG/DL (<150)
== END ==
LOC: M WUC 10:28
PROVIDERS: ATTEND Nurse Practitioner Adult Health
DX: I10 Essential (primary) hypertension (principal); E55.9 Vitamin D deficiency, unspecified; R25.2 Cramp and spasm; E78.2 Mixed hyperlipidemia; E53.8 Deficiency of other specified B group vitamins